=== PATIENT | male | born 1985 | race Caucasian/White ===

== ENCOUNTER 2016-06-11 02:44 | Emergency (ER) | payer OTHER ==
[~2016-06-11] VITALS: Ht 195.6 cm; Wt 98.4 kg
[2016-06-11 02:47] VITALS: TEMP 36.6; Ht 195.6 cm; Wt 98.4 kg
[2016-06-11 04:14] LABS: BASO % 0.8 %; BASO ABS # 0.04 K/uL (0-0.2); COMPLETE YES; EOS % 1.9 %; IG% 0.2 %; LYMPH % 39.5 %; LYMPH ABS # 1.91 K/uL (1.2-3.4); MEAN CORPUSCULAR HEMOGLOBIN 30.3 pg (25-34); MEAN PLATELET VOLUME 11.3 fL (7.4-10.4); MONO % 8.3 %; NEUT % 49.3 %; PLATELET COUNT 134 K/uL (130-400); RED BLOOD COUNT 4.76 M/uL (4.7-6.1); WHITE BLOOD COUNT 4.83 K/uL (4.8-10.8)
[2016-06-11 04:24] LABS: INR 1.1 (0.9-1.1); PARTIAL THROMBOPLASTIN RATIO 1.1; PROTHROMBIN TIME (PATIENT) 11.6 SECONDS (9.0-12.0)
[2016-06-11 04:43] VITALS: O2SAT 99
[2016-06-11 04:44] LABS: BUN/CREATININE RATIO 15.6 (10-20); MAGNESIUM 2.3 mg/dl (1.8-2.4); POTASSIUM 3.9 mmol/L (3.5-5.1)
[2016-06-11 04:48] LABS: ALB/GLOB RATIO 1.3 (0.9-2); CKMB/CK RATIO 1.7 (0-3.0)
[2016-06-11] MEDS ORDERED: IBUP-1428 PO (05:05)
[2016-06-11] MEDS ORDERED: PANTOprazole SOD 40 MG TAB PO STA (05:26)
[2016-06-11] MEDS ORDERED: PANT40TA PO (05:28)
--- NOTE | 2016-06-11 05:29 | EMERGENCY ROOM VISIT NOTE ---
History First contact with patient: 03:17 Chief Complaint: CHEST PAIN Stated Complaint: CHEST TIGHTNESS, SOB, BURNING IN LEFT ARM AND JAW Nursing Triage Summary: Patient reports mid-sternal CP, intermittent, for a few days, states that it was only while laying down. States that the pain radiates in the left side of the jaw and a burning sensation present in the left arm. Patient seen previously in ED for similar s/s, denies cardiac hx. History of Present Illness The patient is a 30 year old male who presents to the Emergency Department by private vehicle for evaluation of his chest tightness as well as shortness of breath and pain in the LEFT arm and jaw. He reports that he's had the symptoms for the past few days. He reports the chest tightness is only present while laying flat. He does describe a burning in his throat as well. The patient reports the pain waxes and wanes in nature. He is had history of solar symptoms in the past and had an unremarkable cardiac evaluation. The patient reports chills as well as occasional nausea. He is tried [id number] medications for symptoms. He rates his current discomfort as a 4/10. The patient denies any recent long distance travel. He denies a smoking history. There is no significant family history of blood clots or bleeding disorders. He reports no family history of cardiac disease or cardiac at young age. He reports his symptoms are not exertional. Review of Systems A complete 10-point Review of Systems was discussed with the patient, with pertinent positives and negatives listed in the History of Present Illness. All remaining Review of Systems questions can be considered negative unless otherwise specified. Family History Family history was reviewed; no changes noted. Social History Smoking Status: Never Smoker Smokeless Tobacco Use: No Drug Use: none Marital Status: single Housing Status: lives with family Occupation Status: [employer] student Current/Historical Medications Scheduled Pantoprazole (Protonix), 40 MG PO DAILY Scheduled PRN Ibuprofen (Motrin), 800 MG PO DAILY PRN for Pain Allergies Coded Allergies: Cephalexin (Unverified Allergy, Unknown, rash, 06/23/15) Penicillins (Unverified Allergy, Unknown, unknown, 06/23/15) Physical Exam Vital Signs Date Time Temp Pulse Resp B/P Pulse Ox O2 Delivery O2 Flow Rate FiO2 06/11/16 05:57 52 16 114/77 100 06/11/16 05:05 59 06/11/16 04:45 64 15 130/74 100 Room Air 06/11/16 04:43 99 Room Air 06/11/16 02:47 36.6 83 20 140/78 100 Room Air Pain Rating (0-10): 4 Physical Exam VITAL SIGNS - Vital signs and nursing notes were reviewed. GENERAL - 30-year-old male appearing his stated age who is in no acute distress. Communicates well with provider and answers questions appropriately. HEAD - NC/AT. EYES - PERRL with EOMI bilaterally. Sclera anicteric. Palpebral conjunctiva pink and moist with no injection noted. EARS - No deformities of external structures noted on gross examination bilaterally. No pain elicited with palpation of the tragus bilaterally. External auditory canals without discharge or otorrhea. Tympanic membranes pearly gallo without retraction or bulging. NOSE - Midline and without cyanosis. No epistaxis or purulent drainage noted. Septum midline without deviation or septal hematoma noted. MOUTH/OROPHARYNX - Without perioral cyanosis. Buccal mucosa pink and moist and without leukoplakia. Tongue midline with equal elevation of palate bilaterally. No tonsillar hypertrophy, erythema, or exudates noted. Good dentition noted. NECK - Neck with FROM. Supple to palpation. LUNGS - Chest wall symmetric without accessory muscle use, intercostals retractions, or central cyanosis. Normal vesicular breath sounds CTA B/L. No wheezes, rales, or rhonchi appreciated. CARDIAC - RRR with S1/S2. No murmur, rubs, or gallops appreciated. No reproducible tenderness to palpation appreciated over the anterior chest wall. ABDOMEN - Abdominal contour flat and without pulsations or visible masses. BS normoactive all four quadrants. No tenderness, palpable masses, hepatosplenomegaly, or ascites noted. EXTREMITIES - No clubbing or peripheral cyanosis. No pretibial edema present. +3 /5 radial and dorsalis pedis pulses palpated throughout. +5/5 strength noted in UE/LE bilaterally. NEUROLOGIC - Cranial nerves II through XII grossly intact. Sensory intact to light touch throughout. PSYCH - A&Ox3 and cooperates fully with examiner. Pt is very pleasant and interacts well with examiner. Medical Decision & Procedures ER Provider Diagnostic Interpretation: X-ray the chest was obtained and reviewed by myself and my attending physician. No acute cardiopulmonary processes appreciated per our interpretation. Radiologist's impression unavailable at the time of dictation. Laboratory Results 06/11/16 04:00 Red Blood Count 4.76, Mean Corpuscular Volume 84.0, Mean Corpuscular Hemoglobin 30.3, Mean Corpuscular Hemoglobin Concent 36.0, Mean Platelet Volume 11.3, Neutrophils (%) (Auto) 49.3, Lymphocytes (%) (Auto) 39.5, Monocytes (%) (Auto) 8.3, Eosinophils (%) (Auto) 1.9, Basophils (%) (Auto) 0.8, Neutrophils # (Auto) 2.38, Lymphocytes # (Auto) 1.91, Monocytes # (Auto) 0.40, Eosinophils # (Auto) 0.09, Basophils # (Auto) 0.04 06/11/16 04:00 Test 06/11/16 04:00 06/11/16 04:10 White Blood Count 4.83 K/uL (4.8-10.8) Red Blood Count 4.76 M/uL (4.7-6.1) Hemoglobin 14.4 g/dL (14.0-18.0) Hematocrit 40.0 % (42-52) Mean Corpuscular Volume 84.0 fL (80-100) Mean Corpuscular Hemoglobin 30.3 pg (25-34) Mean Corpuscular Hemoglobin Concent 36.0 g/dl (32-36) Platelet Count 134 K/uL (130-400) Mean Platelet Volume 11.3 fL (7.4-10.4) Neutrophils (%) (Auto) 49.3 % Lymphocytes (%) (Auto) 39.5 % Monocytes (%) (Auto) 8.3 % Eosinophils (%) (Auto) 1.9 % Basophils (%) (Auto) 0.8 % Neutrophils # (Auto) 2.38 K/uL (1.4-6.5) Lymphocytes # (Auto) 1.91 K/uL (1.2-3.4) Monocytes # (Auto) 0.40 K/uL (0.11-0.59) Eosinophils # (Auto) 0.09 K/uL (0-0.5) Basophils # (Auto) 0.04 K/uL (0-0.2) RDW Standard Deviation 37.7 fL (36.4-46.3) RDW Coefficient of Variation 12.3 % (11.5-14.5) Immature Granulocyte % (Auto) 0.2 % Immature Granulocyte # (Auto) 0.01 K/uL (0.00-0.02) Prothrombin Time 11.6 SECONDS (9.0-12.0) Prothromb Time International Ratio 1.1 (0.9-1.1) Activated Partial Thromboplast Time 28.9 SECONDS (21.0-31.0) Partial Thromboplastin Ratio 1.1 Anion Gap 4.0 mmol/L (3-11) Est Creatinine Clear Calc Drug Dose 138.6 ml/min Estimated GFR () 118.2 Estimated GFR (Non- 102.0 BUN/Creatinine Ratio 15.6 (10-20) Calcium Level 9.0 mg/dl (8.5-10.1) Magnesium Level 2.3 mg/dl (1.8-2.4) Total Bilirubin 0.7 mg/dl (0.2-1) Aspartate Amino Transf (AST/SGOT) 25 U/L (15-37) Alanine Aminotransferase (ALT/SGPT) 22 U/L (12-78) Alkaline Phosphatase 62 U/L (45-117) Total Creatine Kinase 84 U/L (39-308) Creatine Kinase MB 1.4 ng/ml (0.5-3.6) Creatine Kinase MB Ratio 1.7 (0-3.0) Total Protein 7.1 gm/dl (6.4-8.2) Albumin 4.0 gm/dl (3.4-5.0) Globulin 3.1 gm/dl (2.5-4.0) Albumin/Globulin Ratio 1.3 (0.9-2) Bedside D-Dimer 234 ng/mlFEU (0-450) Bedside Troponin I 0.000 ng/ml (0-0.045) Medications Administered Medications (Trade) Dose Ordered Sig/Juan Route Start Time Stop Time Status Last Admin Dose Admin Pantoprazole Sodium (Protonix Tab) 40 mg NOW STAT PO 06/11/16 05:26 06/11/16 05:27 DC 06/11/16 05:52 40 MG Procedure Patient was placed on the unit control worker and monitored throughout the entire extent of their stay. In addition, the patient's pulse oximetry was monitored throughout the entire stay. Any abnormalities or aberrancies were addressed appropriately. ECG Indication: chest pain Rate (beats per minute): 66 Rhythm: sinus with SA Findings: no acute ischemic change, no ectopy Comparison ECG Date: no prior available ED Course Patient was seen and evaluated by myself. Labs were drawn, saline lock in place per the patient declines a think for pain at this time. EKG and chest x- rays were obtained. Laboratory results demonstrate no acute leukocytosis, worrisome anemia, or bandemia. The patient has no significant electrolyte abnormalities. Cardiac enzymes are negative. Troponin was negative. D-dimer was not elevated. Case was reviewed with my taking physician who agrees the diagnostic approach and treatment plan. Laboratory results and imaging studies were reviewed with the patient who acknowledges understanding. He was placed on Protonix for the next several days. He'll follow-up with his primary care provider from today's visit. He will return for any changing or worsening symptoms. Patient discharged home afebrile and in good condition. Medical Decision Given the patient's presentation and stated complaints, I did elect to perform the above-mentioned workup. The patient presents today with ongoing symptoms of pain and burning in his chest. He reports symptoms are worse with laying flat. His symptoms are not exertional. He describes some chest tightness with some shortness breath as well. D-dimer was negative and does not suggest PE. The patient has no significant risk factors otherwise. Chest x-ray and EKG are unremarkable. Cardiac enzymes were negative. Patient's symptoms otalgia is likely related to reflux like symptoms. He will be placed on Protonix. He will follow closely with his primary care provider for continued management. He will return for any changing or worsening symptoms. Patient discharged home afebrile and in good condition. In the evaluation and treatment of this patient, the following differential diagnoses were considered: NM, ASC, Dysrhythmia, Angina, Mediastinitis, GERD, Esophagitis, PE, Pneumonia, Bronchitis, Costochondritis, Rib Fracture, Zoster. Impression Primary Impression: Chest pain Departure Information Dispostion Home / Self-Care Condition GOOD Prescriptions Pantoprazole (Protonix) 40 Mg Tab 40 MG PO DAILY for 14 Days, #14 TAB Prov: Satinder Calabrese PA-C 06/11/16 Referrals Ronnie Felipe D.O. (PCP) Patient Instructions My [facility] Additional Instructions You have been treated in the Emergency Department for your Chest Pain and possible GERD. Laboratory results and Imaging Studies have ruled out any cardiac or pulmonary cause of your chest pain. Use the Protonix as prescribed. For pain control, you can use the following [id number] medicines (if >12 yo): - Regular strength (325mg/tab) Tylenol (acetaminophen) 2 tabs every 4-6 hours as needed. Do not exceed 12 tablets in a 24 hour period. Avoid taking more than 4 grams (4000 mg) of Tylenol per day. This includes any other sources of acetaminophen you may take on a regular basis. - Regular strength (200 mg/tab) Advil (ibuprofen) 1-2 tabs every 4-6 hours as needed. Do not exceed a dose of 3200 mg per day. You should schedule a follow-up appointment with your Primary Care Provider in 2 -3 days for further evaluation from today's Emergency Department visit. Return to the Emergency Department if your current symptoms worsen despite treatment course outlined above, or if you develop any of the following symptoms : worsening chest pain, associated jaw/arm pain, nausea, dizziness, shortness of breath, bloody cough, or fainting. Problem Qualifiers Primary Impression: Chest pain Chest pain type: precordial pain Qualified Codes: R07.2 - Precordial pain
[2016-06-11 05:57] VITALS: BP 114/77; PULSE 52; O2SAT 100
--- NOTE | 2016-06-11 08:16 | DIAGNOSTIC IMAGING REPORT ---
CHEST ONE VIEW PORTABLE CLINICAL HISTORY: Atypical chest pain and shortness of breath COMPARISON STUDY: 06/23/2015 FINDINGS: The cardiac and mediastinal contours are normal. There is no evidence of focal pulmonary consolidation. There is no evidence of failure. No pleural effusions are visualized.[ IMPRESSION: No active disease in the chest. Electronically signed by: Leoncio Cerda M.D. 06/11/2016 8:15 AM Dictated Date/Time: 06/11/2016 8:14 AM
== END 2016-06-11 05:58 | disposition home or self-care (01) ==
LOC: C.EDB 02:46
DX: R07.9 Chest pain, unspecified (principal); Z82.49 Family history of ischemic heart disease and other diseases of the circulatory system; Z88.0 Allergy status to penicillin; Z88.8 Allergy status to other drugs, medicaments and biological substances